=== PATIENT | male | born 1975 | race Caucasian/White ===

== ENCOUNTER 2018-07-02 11:36 | Emergency (ER) | payer OTHER ==
--- NOTE | 2018-07-02 11:57 | EDPHY ---
H & P Time Seen by Provider: 07/02/18 11:57 - Social History Smoking Status: Never smoked Allergies/Adverse Reactions: droperidol [From Inapsine] Allergy (Mild, Verified 07/02/18 12:21) Anxiety latex Allergy (Verified 07/02/18 12:21) SENSITIVITY-RED SKIN Home Medications: Medication Instructions Recorded CeleBREX 07/02/18 Medical Decision Making ED Course/Re-evaluation: CHIEF COMPLAINT: Right shoulder pain HISTORY OF PRESENT ILLNESS: The patient is a 42 y/o male with a history of right shoulder labrum tears and surgical repairs who complains of ongoing right shoulder pain after moving a patient last week. He was transferring a patient in IR when he extended both arms to push the patient over and felt his right shoulder "lock up" with associated pressure and pain in the joint. He's had a few days off over the holiday and was managing okay without treatment, but upon returning to work and attempting to use full ROM of his shoulder he had significant pain inhibiting his ability to work. He was sent to the ED for an MRI as this is a work-related injury. No weakness, paresthesias, fever, other complaints. REVIEW OF SYSTEMS: A comprehensive 10 system review of systems is otherwise negative aside from elements mentioned in the history of present illness and medical decision making. PHYSICAL EXAM: HR, BP, O2 Sat, RR. Temp noted General Appearance: Alert, well hydrated, appropriate, and non-toxic appearing. Head: Atraumatic without scalp tenderness or obvious injury Eyes: Pupils equal, round, reactive to light and accommodation, EOMI, no trauma , no injection. Nose: Atraumatic, no rhinorrhea, clear. Throat: Mucus membranes moist. Neck: Supple, nontender, no lymphadenopathy. Respiratory: No retractions, no distress, no wheezes, and no accessory muscle use. Lungs are clear to auscultation bilaterally. Cardiovascular: Regular rate and rhythm, no murmurs, rubs, or gallops. Good capillary refill all extremities. Musculoskeletal: Right shoulder limited ROM. Otherwise normal active ROM of all extremities, atraumatic. Neurological: Alert, appropriate, and interactive. The patient has non-focal cranial nerves, motor, sensory, and cerebellar exam. Skin: No rashes, good turgor, no nodules on palpation. Past medical history: Multiple right shoulder labral tears Past surgical history: 3 shoulder surgeries Family history: Noncontributory Social history: Employed at [employer]. Lives in [place]. DIAGNOSTICS/PROCEDURES/CRITICAL CARE TIME: Right shoulder MRI: partial supraspinatus tear DIFFERENTIAL DIAGNOSIS: The differential diagnosis for the patient's symptoms included but was not limited to fracture, ligamentous injury, contusion, muscular strain. MEDICAL DECISION MAKING: This is a 42 y/o male with a history of right shoulder labral tears who presents with a workman's comp right shoulder injury after moving a patient last week. He has limited ROM of his right shoulder and any movement causes pain. He is neurovascularly intact. Plan for right shoulder MRI to assess for labral tear and other causes. MRI shows partial supraspinatus tear. Reassessed patient and discussed findings. He will be discharged with referral to his orthopedist for follow up. Standard care instructions and return precautions discussed. Departure - Departure Disposition: Home, Routine, Self-Care Clinical Impression: Supraspinatus tendon tear Qualifiers: Laterality: right Qualified Code(s): M75.101 - Unspecified rotator cuff tear or rupture of right shoulder, not specified as traumatic Condition: Good Instructions: Shoulder Pain (ED) Additional Instructions: 1. Tylenol and ibuprofen as directed on the packaging as needed for pain. 2. Follow up with your orthopedist in the next few days. 3. Contact HR department and follow up with [email or web address] as directed by them. 4. Return for worsening of condition. Referrals: Rico Fernandez MD [Medical Doctor] - As per Instructions Report Scribed for: Marv Velazquez Report Scribed by: Radha Guzman Date of Report: 07/02/18 Time of Report: 13:34
[2018-07-02 13:47] VITALS: BP 121/77
== END 2018-07-02 13:41 | disposition home or self-care (01) ==
DX: M75.101 Unspecified rotator cuff tear or rupture of right shoulder, not specified as traumatic (principal); Y92.89 Other specified places as the place of occurrence of the external cause; Y93.89 Activity, other specified; Y99.0 Civilian activity done for income or pay

== ENCOUNTER 2018-11-09 12:43 | Emergency (ER) | payer OTHER ==
--- NOTE | 2018-11-09 12:58 | CPEKG ---
Test Reason : OPEN Blood Pressure : / mmHG Vent. Rate : 080 BPM Atrial Rate : 079 BPM P-R Int : 158 ms QRS Dur : 093 ms QT Int : 374 ms P-R-T Axes : 069 076 045 degrees QTc Int : 432 ms Sinus rhythm Confirmed by Collin Perry ([id number]) on 11/09/2018 12:57:32 PM Referred By: PHYSICIAN ED Confirmed By:Collin Perry
[2018-11-09 13:11] LABS: PLATELET COUNT 268 10^3/uL (150-400)
--- NOTE | 2018-11-09 13:27 | EDPHY ---
H & P Stated Complaint: Pt c/o palps/tachy x1wk, episode 180HR @. No assoc s/ s. Time Seen by Provider: 11/09/18 12:57 HPI/ROS: CHIEF COMPLAINT: Rapid heart rate HISTORY OF PRESENT ILLNESS: 42-year-old male previously healthy presents with rapid heart rate. Onset of intermittent episodes of rapid heart rate 1 week ago. He 1st noticed heart rate of 150 on his palpable watch 1 week ago. The tachycardia lasted approximately 1 hr and then resolved spontaneously. No associated symptoms and no alleviating or aggravating factors. Since the initial episode, he has stopped taking Celebrex and has stopped caffeine and alcohol use. He continues to have intermittent episodes of tachycardia, usually 110-120. He made an appointment to see Dr. Evans for . REVIEW OF SYSTEMS: complete 10 point ROS reviewed and is negative except for the noted elements in the HPI - Personal History Current Tetanus/Diphtheria Vaccine: Yes - Medical/Surgical History Hx Asthma: No Hx Chronic Respiratory Disease: No Hx Diabetes: No Hx Cardiac Disease: No Hx Renal Disease: No Hx Cirrhosis: No Hx Alcoholism: No Hx HIV/AIDS: No Hx Splenectomy or Spleen Trauma: No Other PMH: Denies - Family History Significant Family History: No pertinent family hx - Social History Smoking Status: Never smoked Alcohol Use: None Drug Use: None - Physical Exam Exam: General Appearance: Alert, pleasant Eyes: Pupils equal and round, no conjunctival pallor ENT, Mouth: Mucous membranes moist Neck: Normal inspection Respiratory: Lungs are clear to auscultation Cardiovascular: Regular rate and rhythm, no murmur Gastrointestinal: Abdomen is soft and nontender Neurological: A&O, nonfocal exam Skin: Warm and dry Extremities: Normal inspection Psychiatric: Mood and affect normal Constitutional: Initial Vital Signs Temperature (C) 36.4 C 11/09/18 12:47 Heart Rate 81 11/09/18 12:47 Respiratory Rate 16 11/09/18 12:47 Blood Pressure 138/93 H 11/09/18 12:47 O2 Sat (%) 95 11/09/18 12:47 O2 Delivery Mode Room Air Allergies/Adverse Reactions: droperidol [From Inapsine] Allergy (Mild, Verified 11/09/18 12:46) Anxiety latex Allergy (Verified 11/09/18 12:46) SENSITIVITY-RED SKIN Home Medications: Medication Instructions Recorded CeleBREX 07/02/18 Medical Decision Making - Diagnostics EKG Interpretation: EKG interpreted by me reveals normal sinus rhythm, rate 80, no ST or T segment changes. Interpretation: Normal EKG Imaging Results: Chest X-Ray 11/09/18 12:58 Impression: No acute pulmonary disease. Imaging: I viewed and interpreted images myself ED Course/Re-evaluation: This pt presents with tachycardia, episodic. stat EKG reveals no evidence of ischemia or dysrhythmia. surveillance system monitor: NSR throughout ED stay. Ddimer normal; can safely exclude PE in pt with no RF for PE. Electrolytes/TSH normal as well. Ambulated briskly in ED on pulse ox, HR 110's, then briefly 160. Quickly placed back on monitor, HR 80. ?SVT vs monitor error. No other episodes of tachycardia, PACs/PVCs. Safe/stable for d/c. Will f/u cards this week as scheduled. Plan for outpt Holter monitoring. Differential Diagnosis: Includes though is not limited to SVT, atrial fibrillation, PVCs, other ventricular dysrhythmia, thyrotoxicosis - Data Points Laboratory Results: Laboratory Results 11/09/18 13:00 11/09/18 13:00 Point of Care Test Results: Chemistry 11/09/18 13:11 POC Troponin I 0.00 ng/mL ng/mL (0.00-0.08) Departure - Departure Disposition: Home, Routine, Self-Care Clinical Impression: Palpitations Condition: Fair Instructions: Heart Palpitations (ED) Additional Instructions: Return for persistent symptoms or any concerns. Referrals: Charles Evans MD [Medical Doctor] - As per Instructions
[2018-11-09 14:15] VITALS: BP 135/96
== END 2018-11-09 14:22 | disposition home or self-care (01) ==
DX: R00.2 Palpitations (principal)
CPT/HCPCS: 84484-ER

== ENCOUNTER → 2018-11-11 | Outpatient (CLI) | payer OTHER ==
--- NOTE | 2018-11-11 16:45 | ECHO ---
[email or web address] [place] [id number] Main: [phone] Echocardiography Examination Transthoracic Name: ROZ TONY MR#: [id number] Study Date: 11/11/2018 Study Time: 01:53 PM Date of : 1975 Age: 42 year(s) Height: ( ) Weight: ( ) BSA: Gender: Male Examination: Echo Contrast: Image Quality: Rhythm: Normal sinus rhythm Heart Rate: 87 bpm BP: / Indication: Supraventricular Tachycardia Procedure Staff Referring Physician: [employer] Specialist: Allen Levy RDCS Reading Physician: Osvaldo Gatica MD Requesting Provider: Ordering Physician: Na Olvera Indication: Supraventricular Tachycardia Measurements Chambers AV/MV Label Value Normal Value Label Value Normal Value LVDd, MM 4.7 cm (4.2cm - 5.9cm) MV E Vmax 0.67 m/s LVDd, 2D 4.6 cm (4.2cm - 5.9cm) MV A Vmax 0.93 m/s LVDs, MM 3.1 cm (2cm - 3.8cm) MV E/A 0.72 LVDs, 2D 3 cm (2.1cm - 4cm) MV E/E' lateral 8.2 IVSd, MM 1.2 cm (0.6cm - 0.9cm) MV E/E' septal 13.8 (0.5 - 1.7) IVSd, 2D 0.9 cm (0.6cm - 1.1cm) MV E' septal 0.05 m/s LVPWd, MM 1.3 cm (0.6cm - 1cm) MV E' lateral 0.08 m/s LVPWd, 2D 1.1 cm (0.6cm - 1cm) MV E/E' mean 10.31 LVEF, 2D 64 % (54% - 74%) MV E' mean 0.06 m/s RVDd, 2D 3 cm (1.9cm - 3.8cm) TV/PV LA Volume, BP 41 ml (18ml - 58ml) Label Value Normal Value Additional Vessels PV PGmax 6 mmHg Label Value Normal Value PV Vmax, Caliper 1.18 m/s (0.6m/s - 0.9m/s) AoRoot, MM 3.3 cm (2.2cm - 3.7cm) Conclusions (1) Left ventricular systolic ejection fraction was normal (65%) - no LVH (2) Normal RV size and function Patient: ROZ TONY Study Date: 11/11/2018 Page 1 of 2 01:53 PM (3) Normal atrial dimensions (4) Normal mitral valve (5) Trileaflet aortic valve without sclerosis or insufficiency (6) Grossly normal tricuspid valve (7) Normal aortic dimensions (3.3 cm) (8) No pericardial effusion Findings Left Ventricle: Left ventricle is normal in size. Normal global systolic left ventricular function. The EF is visually estimated to be 65 %. EF range is estimated at 65 % - 70 %. Left ventricle wall thickness is normal. There are no regional wall motion abnormalities. Left ventricular diastolic function parameters are normal. IVS: The septum is intact. Right Ventricle: Normal size right ventricle. Right ventricular systolic function is normal. Left Atrium: The left atrium is normal in size. IAS: Normal appearing atrial septum. Right Atrium: The right atrium is normal in size. Mitral Valve: Mitral valve is normal in appearance. No mitral regurgitation. No mitral valve stenosis. Aortic Valve: Aortic leaflets exhibit normal cuspal separation. No aortic valve regurgitation. There is no aortic stenosis. Tricuspid Valve: Tricuspid valve leaflets are normal in appearance and function. No tricuspid regurgitation. No tricuspid valve stenosis. Pulmonary artery pressure normal. Pulmonic Valve: Pulmonic leaflets exhibit normal cuspal separation. No pulmonic valve regurgitation is evident. There is no pulmonic valve stenosis. Aorta: The aorta is normal. The aortic root size in M-mode measures 3.3 cm. Aorta Measurements AoRoot, MM is 3.3 cm. Pulmonary Artery: The pulmonary artery morphology appears normal. IVC: The inferior vena cava is normal in size and course. Pericardium: No pericardial effusion. No pleural effusion present. Exam Details Procedure Ordered: Echo (No Signature Object) Patient: ROZ TONY Study Date: 11/11/2018 Page 2 of 2 01:53 PM [id number]
== END ==
LOC: FCP 13:52
PROVIDERS: ATTEND Registered Nurse
DX: Z09 Encounter for follow-up examination after completed treatment for conditions other than malignant neoplasm (principal); I47.1 Supraventricular tachycardia